=== PATIENT | male | born 1995 | race Caucasian/White ===

== ENCOUNTER 2021-06-27 18:49 | Emergency (ER) | payer OTHER, SELFPAY ==
--- NOTE | ~2021-06-27 | XR_ITS ---
EXAMINATION: XR FOREARM, RIGHT XR WRIST, RIGHT CLINICAL INFORMATION: Right arm pain COMPARISON: None TECHNIQUE: 2 views of the right forearm. 4 views of the right wrist. FINDINGS: Right forearm: No fracture or cortical disruption. Appropriate alignment of the elbow. The soft tissues are unremarkable. Right wrist: No fracture or dislocation. The carpal rows are well aligned. Joint spaces are maintained. The soft tissues are unremarkable. XR/XR wrist RT 2V IMPRESSION: Normal appearance of the right forearm and right wrist.
--- NOTE | ~2021-06-27 | XR_ITS ---
EXAMINATION: XR FOREARM, RIGHT XR WRIST, RIGHT CLINICAL INFORMATION: Right arm pain COMPARISON: None TECHNIQUE: 2 views of the right forearm. 4 views of the right wrist. FINDINGS: Right forearm: No fracture or cortical disruption. Appropriate alignment of the elbow. The soft tissues are unremarkable. Right wrist: No fracture or dislocation. The carpal rows are well aligned. Joint spaces are maintained. The soft tissues are unremarkable. XR/XR forearm RT 2V IMPRESSION: Normal appearance of the right forearm and right wrist.
[2021-06-27 19:03] VITALS: BP 114/68; PULSE 66; RESP 18; TEMP 36.9; O2SAT 100; BMI 22.6
--- NOTE | 2021-06-27 20:15 | ED.EXTPRO ---
HPI - Extremity Problem General Chief complaint: Extremity Injury, Upper Stated complaint: Hand injury at work Time Seen by Provider: 06/27/21 20:05 Source: patient Mode of arrival: ambulatory Limitations: no limitations History of Present Illness HPI Narrative: 25-year-old male here with complaints of right wrist pain for several days. No known injury or trauma but at work lives heavy objects quite repetitively. No numbness or tingling. No weakness. He is right-hand dominant Related Data Previous Rx's Medication Instructions Recorded naproxen 500 mg tablet 500 mg PO BID PRN #20 tab 06/27/21 Allergies Allergy/AdvReac Type Severity Reaction Status Date / Time No Known Allergies Allergy Verified 06/27/21 19:02 Review of Systems Review of Systems: Yes all other systems are reviewed and are negative Constitutional: Constitutional: Reports no additional constitutional complaints, Denies body ache(s), Denies chills, Denies fever(s), Denies headache(s) and Denies weakness Eyes: Eyes: Reports no additional eye complaints and Denies change in vision ENT: Reports system reviewed and no additional complaints, except as documented, Denies dizziness, Denies headache(s), Denies nasal congestion, Denies nasal discharge and Denies neck pain Cardiovascular: Cardiovascular: Reports no additional cardiovascular complaints, Denies chest pain, Denies leg edema and Denies dyspnea Respiratory: Respiratory: Reports no additional respiratory complaints, Denies cough and Denies dyspnea Gastrointestinal: Gastrointestinal: Reports no additional gastrointestinal complaints, Denies abdominal pain, Denies diarrhea, Denies nausea and Denies vomiting Genitourinary: Genitourinary: Denies urinary incontinence Musculoskeletal: Musculoskeletal: Reports no additional musculoskeletal complaints, Denies back pain, Reports arthralgias, Denies joint swelling, Denies neck pain, Denies numbness and Denies tingling Integumentary/Breasts: Skin/Breast: Reports system reviewed and no additional complaints, except as docu and Denies rash Neurologic: Reports system reviewed and no additional complaints, except as documented, Denies Abnormal speech present, Denies dizziness, Denies headache(s), Denies numbness, Denies tingling and Denies weakness PMFSH Past Medical History Attestation statement: The following information was validated with the patient. Source: old records reviewed and nursing notes reviewed Medical History No pertinent past medical history Social History Social History Advance Directives: No Physical Exam Vital Signs: Vital Signs: Last Vital Signs Temp 98.4 F 06/27/21 19:03 Pulse 66 06/27/21 19:03 Resp 18 06/27/21 19:03 BP 114/68 06/27/21 19:03 Pulse Ox 100 06/27/21 19:03 Body Mass Index 22.6 Const: General: cooperative, healthy appearing, comfortable and no acute distress Orientation/consciousness: patient oriented x3 Limitations: no limitations HENMT: Head: Yes normal to inspection Ears: hearing grossly normal bilaterally General nose exam: Normal external nose present Face and sinus: Yes normal facial exam Mouth: Normal oral and palatal mucosa present Throat: Yes posterior oropharynx normal Eyes: General: appearance normal, both eyes and all related structures Pupils: Equal, round and reactive pupils present Neck: Neck: Yes normal visual inspection Chest: Chest palpation & inspection: normal inspection of the chest Resp: Effort & Inspection: normal respiratory effort Auscultation: clear to auscultation bilaterally Cardio: Rate: regular rate Rhythm: regular rhythm Peripheral pulses: Peripheral pulses 2+ throughout GI: Inspection: Yes normal to inspection Palpation (GI): Soft to palpation and nontender Auscultation: normal bowel sounds Back/Spine/Pelvis: Thoracic/Lumbar Spine: thoracic and lumbar spine normal to inspection Skin: General skin exam: no rashes or lesions noted Neuro: General: patient oriented x3, no focal motor deficits and normal sensation to monofilament Cranial nerves: Yes Equal, round and reactive pupils present Cognition (Neuro): normal cognition Speech: No Abnormal speech present Gait exam (Neuro): Normal gait present Motor exam (neuro): 5/5 motor strength present throughout Extrem: Other: Tenderness right distal radial wrist with a positive Evangelina test No swelling, redness or warmth Palpable pulses Full range of motion General: Yes normal to inspection Course Course Course Narrative: 25-year-old male [id number] here with complaints of right wrist pain for several days with no known injury or trauma. Patient does work at a job that requires repetitive hand movement and heavy lifting.. He does have tenderness of the right distal radial wrist with no obvious swelling or deformity. He has a positive Evangelina test. X-ray show no bony abnormality. Will place in wrist splint. Reviewed worrisome signs and symptoms of when to return to the emergency department. Comfortable discharge home. MDM - Extremity (Nontraumatic) Medical Records Attestation: I reviewed the patient's medical records. Lab Data Attestation: I reviewed the patient's lab results. Imaging Data right forearm/wrist xray: Attestation: I personally reviewed and interpreted this imaging study as follows: Radiologist's impression: CLINICAL INFORMATION: Right arm pain? COMPARISON: None? TECHNIQUE: 2 views of the right forearm. 4 views of the right wrist.? FINDINGS: Right forearm: No fracture or cortical disruption. Appropriate alignment of the elbow. The soft tissues are unremarkable. Right wrist: No fracture or dislocation. The carpal rows are well aligned. Joint spaces are maintained. The soft tissues are unremarkable.? XR/XR forearm RT 2V IMPRESSION: Normal appearance of the right forearm and right wri Procedures Procedure Narrative Procedure Narrative: Wrist splint Discharge Plan Discharge Clinical Impression: De Quervain's tenosynovitis, right Patient Disposition: Home, Self-Care Instructions: De Quervain Disease (ED), Tenosynovitis (ED) Additional Instructions: Ice, rest, wrist splint for daytime Limit use of the hand for the next few days For persistent pain greater than 1 week follow-up with Orthopedics Prescriptions: New naproxen 500 mg tablet 500 mg PO BID PRN (Reason: pain) Qty: 20 RF: 0 Referrals: Zoran Chaudhry PA-C [Primary Care Provider] - 2 days Eva Monsivais MD [Physician] - 1 week (For continued pain) Stand Alone Forms: Work/School Release Print Language: Welsh
== END 2021-06-27 20:39 | disposition home or self-care (01) ==
PROVIDERS: Emergency Provider Internal Medicine; PCP Physician Assistant
DX: M65.4 Radial styloid tenosynovitis [de Quervain] (principal)
CPT/HCPCS: 73090; 73100; 99283; 99284